=== PATIENT | female | born 1980 ===

== ENCOUNTER 2017-06-20 05:55 | Inpatient (IN) | payer SELFPAY ==
[2017-06-20] VITALS (8 sets, daily range): BP systolic 101–142; BP diastolic 64–79
[~2017-06-20] VITALS: Ht 157.5 cm; Wt 72.1 kg
[~2017-06-20 05:55] MED LIST: IRON325 M1 PO; PRENATAL TABLE1 EACH PO; VITAMIN D31000 UNIT PO
[2017-06-20 06:43] LABS: EOSINOPHIL (%) 0.9 % (0-5); EOSINOPHIL COUNT 0.1 K/uL (0-0.3); HEMATOCRIT 32.2 % (36.0-46.0); IMMATURE GRANULOCYTE (%) 0.7 % (0.0-0.7); IMMATURE GRANULOCYTE COUNT 0.1 K/uL; INSTRUMENT ABS NEUTROPHIL CT 5.9 K/uL; LYMPHOCYTE COUNT 2.2 K/uL (1.0-2.8); MCH 21.4 PG (29.0-34.0); MCHC 32.3 G/DL (30.0-36.0); MCV 66.4 FL (83-99); MONOCYTE (%) 3.5 % (3-12); MONOCYTE COUNT 0.3 K/uL (0-0.8); NEUTROPHIL (%) 69.6 % (45-76); NEUTROPHIL COUNT 5.9 K/uL (1.8-6.4); NRBC (%) 0.2 /100 WBC (0-0); PLATELET COUNT 144 K/uL (156-360); RBC DIS.WIDTH-CV 15.8 % (11.8-14.6); RBC DIS.WIDTH-SD 35.5 % (39-53); RED BLOOD COUNT 4.85 M/uL (3.80-5.20); WHITE BLOOD COUNT 8.5 K/uL (4.1-10.2)
[2017-06-21 02:41] VITALS: BP 95/55
[2017-06-21 06:08] LABS: EOSINOPHIL (%) 1.9 % (0-5); EOSINOPHIL COUNT 0.1 K/uL (0-0.3); HEMATOCRIT 24.6 % (36.0-46.0); IMMATURE GRANULOCYTE (%) 0.7 % (0.0-0.7); IMMATURE GRANULOCYTE COUNT 0.1 K/uL; INSTRUMENT ABS NEUTROPHIL CT 4.6 K/uL; LYMPHOCYTE COUNT 2.3 K/uL (1.0-2.8); MCHC 32.5 G/DL (30.0-36.0); MCV 67.8 FL (83-99); MONOCYTE (%) 4.2 % (3-12); MONOCYTE COUNT 0.3 K/uL (0-0.8); NEUTROPHIL (%) 61.7 % (45-76); NEUTROPHIL COUNT 4.6 K/uL (1.8-6.4); RBC DIS.WIDTH-CV 15.8 % (11.8-14.6); WHITE BLOOD COUNT 7.4 K/uL (4.1-10.2)
[2017-06-21 06:19] LABS: RED BLOOD COUNT 3.63 M/uL (3.80-5.20)
[2017-06-21 06:59] LABS: PLAT.SUFFICIENCY DECREASED; PLATELET COUNT 110 K/uL (156-360)
[2017-06-21 07:50] VITALS: BP 130/75
[2017-06-21] MEDS ORDERED: IBUPROFEN800 MG PO (12:00)
[2017-06-21] MEDS ORDERED: ENDOCET 5-3251 EACH PO (12:00)
[2017-06-21 13:46] VITALS: BP 104/68
[2017-06-21 14:39] VITALS: BP 131/72
[2017-06-21 19:06] VITALS: BP 131/67
[2017-06-21 22:40] VITALS: BP 128/73
[2017-06-22 03:12] VITALS: BP 142/84
[2017-06-22 07:27] VITALS: BP 129/70
== END 2017-06-22 13:21 | disposition home or self-care (01) | DRG 766 ==
LOC: 2WEST 05:55 → 2SOUTH 11:49 → 2WEST 06-22 13:21
PROVIDERS: Obstetrics & Gynecology
PROC: 10D00Z1 Extraction of Products of Conception, Low, Open Approach (ICD-10-PCS; principal; 2017-06-20)
DX: O34.211 Maternal care for low transverse scar from previous cesarean delivery (principal); O99.02 Anemia complicating childbirth; D50.9 Iron deficiency anemia, unspecified; O26.893 Other specified pregnancy related conditions, third trimester; Z67.11 Type A blood, Rh negative; Z3A.39 39 weeks gestation of pregnancy; Z37.0 Single live birth
CPT/HCPCS: 83030; 85025; 86850; 86900; 86901; J0690; J1100; J1170; J1885; J2274; J2405; J2790; J3010; J7120